=== PATIENT | female | born 2000 | race Caucasian/White ===

== ENCOUNTER 2021-05-20 13:26 | Emergency (ER) | payer MEDICAID, SELFPAY ==
[2021-05-20 15:16] VITALS: BP 143/84; PULSE 70; RESP 18; TEMP 36.1; O2SAT 100; BMI 21.9
[2021-05-20 16:21] LABS: Glucose Urine UA NEG (NEG); Leukocyte Esterase Urine NEG (NEG); Nitrite Urine NEG (NEG); PH 8.5 (5.0-8.0); UACC Culture Trigger NO; Urine Blood 1+ (NEG); Urine Ketones NEG (NEG); Urine Protein NEG (NEG-TRACE)
[2021-05-20 16:22] LABS: Appearance Urine CLOUDY; Color Urine YELLOW
[2021-05-20 16:29] LABS: Bacteria Urine TRACE /LPF; Mucus Urine 3+ /LPF; RBC Urine 0-2 /HPF (0); Squamous Epithelial Cell Urine 3+ /LPF; WBC Urine 0 /HPF (0-4)
[2021-05-20 16:30] LABS: Amorphous Sediment Urine 3+ /LPF
[2021-05-20 16:35] LABS: UPreg QC Valid YES; Urine Pregnancy NEGATIVE (NEGATIVE)
--- NOTE | 2021-05-20 17:42 | ED.GENADULT ---
HPI - General Adult General Chief complaint: General Medical Stated complaint: wants blood work done, personal issues Time Seen by Provider: 05/20/21 16:13 Source: patient Mode of arrival: ambulatory Limitations: no limitations History of Present Illness HPI narrative: Patient presents to ED for personal issues. Patient states she has irrated skin in perineal area that were bumps that she popped ( after shaving) Patient denies any vaginal discharge or vaginal bleeding. Patient admits to history of STD in the past. Patient states her boyfriend recently cheated on her. Patient denies any abdominal pain, flank pain, nausea, vomiting. Related Data Previous Rx's Medication Instructions Recorded doxycycline hyclate 100 mg tablet 100 mg PO BID 10 Days #20 tab 05/20/21 mupirocin 2 % topical ointment 1 appl TOPICAL TID 7 Days #22 g 05/20/21 Allergies Allergy/AdvReac Type Severity Reaction Status Date / Time No Known Allergies Allergy Verified 05/20/21 18:58 [No Known Allergies*] Review of Systems Constitutional: Constitutional: Reports as per HPI and Reports no additional constitutional complaints Eyes: Eyes: Reports as per HPI and Reports no additional eye complaints ENT: Reports system reviewed and no additional complaints, except as documented and Reports as per HPI Cardiovascular: Cardiovascular: Reports as per HPI and Reports no additional cardiovascular complaints Respiratory: Respiratory: Reports as per HPI and Reports no additional respiratory complaints Gastrointestinal: Gastrointestinal: Reports as per HPI and Reports no additional gastrointestinal complaints Genitourinary: Genitourinary: Reports no additional female genitourinary complaints and Reports as per HPI Comments: Mom some genitals Musculoskeletal: Musculoskeletal: Reports no additional musculoskeletal complaints and Reports as per HPI Neurologic: Reports system reviewed and no additional complaints, except as documented and Reports as per HPI Psychiatric: Psychiatric: Reports no additional psychiatric complaints and Reports as per HPI Endocrine: Endocrine: Reports no additional endocrine complaints and Reports as per HPI [facility] Social History Social History Advance Directives: No Advance Directives Information Provided: Yes Patient : No Physical Exam Vital Signs: Vital Signs: Last Vital Signs Temp 97.0 F 05/20/21 15:16 Pulse 70 05/20/21 15:16 Resp 18 05/20/21 15:16 BP 143/84 H 05/20/21 15:16 Pulse Ox 100 05/20/21 15:16 Body Mass Index 21.9 Const: General: cooperative, healthy appearing, comfortable, no acute distress, well developed, alert, awake and Physically active Orientation/consciousness: patient oriented x3 HENMT: Head: Yes normal to inspection, Yes No palpable skull fracture present, Yes normocephalic and Yes atraumatic Eyes: General: appearance normal, both eyes and all related structures Neck: Neck: Yes normal visual inspection, Yes full ROM, Yes no lymphadenopathy, Yes no meningeal signs, Yes trachea midline, Yes supple and No tender Chest: Chest palpation & inspection: normal inspection of the chest and normal palpation of entire chest wall Resp: Effort & Inspection: normal respiratory effort and able to speak in complete sentences Auscultation: clear to auscultation bilaterally Cardio: Jugular venous distension: no JVD Heart sounds: S1 normal heart sound present and S2 normal heart sound present GI: Inspection: Yes normal to inspection and No abdominal wall ecchymosis Palpation (GI): Soft to palpation, not firm, nontender, no guarding and not rigid : Other: Negative for any vaginal discharge. Negative for any cervical motion tenderness. Negative for adnexal tenderness. Negative for any vaginal lesions. General: No CVA tenderness and Yes no CVA tenderness Female genitals images: 1. Positive for irritated like skin. Negative for any lesions, negative for any palpable mass, negative for any vesicular lesions, negative for any chancre. Negative for any wart like lesions. Back/Spine/Pelvis: Back: no CVA tenderness, No CVA tenderness and No back tenderness Skin: General skin exam: no rashes or lesions noted and elasticity normal Neuro: General: patient oriented x3, no meningeal signs and CN's II-XI intact bilaterally Cranial nerves: Yes CN's II-XII intact bilaterally Extrem: General: Yes normal to inspection and Yes full ROM Psych: Appearance: grossly normal, well kempt and not disheveled Course Course Course Narrative: Urinalysis and CT angio ordered. 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 Reevaluation(s) Reevaluation #1: Physical exam does not indicate HSV, but HSV swab was still sent. Chlamydia and gonorrhea urine sample was sent. Trichomonas and BV sample was also sent. Patient is not . Urine negative for UTI. Physical exam does not indicate syphilis. Patient agreeable for empiric treatment for gonorrhea and chlamydia. Patient will be discharged with mupirocin. Also doxycycline. Medical Decision Making Lab Data Labs: Lab Results 05/20/21 05/20/21 Range/Units 16:09 16:09 Urine Color YELLOW Urine Appearance CLOUDY Urine pH 8.5 H (5.0-8.0) Ur Specific [place] 1.020 (1.005-1.025) Urine Protein NEG (NEG-TRACE) MG/DL Urine Glucose (UA) NEG (NEG) MG/DL Urine Ketones NEG (NEG) MG/DL Urine Blood 1+ H (NEG) Urine Nitrite NEG (NEG) Ur Leukocyte Esterase NEG (NEG) Urine RBC 0-2 (0) /HPF Urine WBC 0 (0-4) /HPF Ur Squamous Epith Cells 3+ /LPF Amorphous Sediment 3+ /LPF Urine Bacteria TRACE /LPF Urine Mucus 3+ /LPF Urine Test NEGATIVE (NEGATIVE) Discharge Plan Discharge Clinical Impression: Folliculitis Patient Disposition: Home, Self-Care Instructions: Folliculitis (ED) Additional Instructions: You will be discharged with antibiotic cream and antibiotic pills. He will be called with results for swabs that were done in the ER if positive. Return to ED for any abdominal pain, nausea, vomiting, fever, chills, worsening rash, vaginal discharge, vaginal bleeding, or any other concerning symptoms. Please follow-up with PCP Prescriptions: New doxycycline hyclate 100 mg tablet 100 mg PO BID 10 Days Qty: 20 RF: 0 mupirocin 2 % ointment 1 appl topical TID 7 Days Qty: 22 RF: 0 Stand Alone Forms: Work/School Release Discharge Date/Time: 05/20/21 19:08 Print Language: [place]
[2021-05-20] MEDS: cefTRIAXone sodium 500 MG, Lidocaine HCl 1 % MPF 1 ML IM (18:56)
[2021-05-21 10:16] LABS: CT PCR NOT DETECTED (Not Detect.); NG PCR NOT DETECTED (Not Detect.)
[2021-05-21 11:15] LABS: BV Int Neg Control Negative (Negative); BV Int Pos Control Positive (Positive)
== END 2021-05-20 19:08 | disposition home or self-care (01) ==
PROVIDERS: Physician Assistant; Emergency Provider Emergency Medicine Emergency Medical Services
DX: L73.9 Follicular disorder, unspecified (principal); N76.0 Acute vaginitis
CPT/HCPCS: 36415; 81001; 81025; 87255; 87480; 87491; 87510; 87591; 87660; 96374; 99283; 99284; J0696